=== PATIENT | female | born 1995 | race Caucasian/White ===

== ENCOUNTER 2022-10-24 12:36 | Emergency (ER) | payer BC ==
[2022-10-24 12:52] VITALS: TEMP 97.9
--- NOTE | 2022-10-24 14:21 | ED ---
General Adult HPI - General Source: patient, RN notes reviewed Mode of arrival: ambulatory Limitations: no limitations <Stefan Davis - Last Filed: 10/24/22 14:19> <Zulay Henry - Last Filed: 10/31/22 22:07> - General Chief complaint: Abdominal Pain Stated complaint: Abd pain/chest pain Time Seen by Provider: 10/24/22 14:19 - History of Present Illness Initial comments: 27-year-old female presents emergency Department chief complaint of not feeling well. Patient states she is driving started having some visual disturbance states that she felt very lightheaded. She did not pass out. States symptoms have improved somewhat states she still feels off she's been down with nausea for several months from her new control. Denies any chance denies abdominal pain states her chest felt heavy she has no prior thyroid disease. (Stefan Davis) 27-year-old female presents emergency Department reporting an episode of chest pain, shortness of breath, abdominal pain, nausea, visual disturbance and numbness in her hands which happened just prior to hospital arrival. States that she was at work when all the symptoms started. She called her mom who drove her immediately to the emergency room. Has a strong family history of cardiac disease. Patient has no known medical problems and does not take any medications. Patient is improved upon the time of my evaluation. Denies any chest pain or abdominal pain. No shortness of breath. Denies concern for . No other alleviating, presenting modifying factors (Zulay Henry) - Related Data Home Medications Medication Instructions Recorded Confirmed norgestimate-ethinyl estradioL 1 tab PO DAILY 10/24/22 10/24/22 [Evie 0.25-0.035 mg Tablet] Allergies Allergy/AdvReac Type Severity Reaction Status Date / Time No Known Allergies Allergy Verified 10/24/22 17:46 Review of Systems ROS Other: All systems not noted in ROS Statement are negative. <Stefan Davis - Last Filed: 10/24/22 14:19> ROS Other: All systems not noted in ROS Statement are negative. <Zulay Henry - Last Filed: 10/31/22 22:07> ROS Statement: Those systems with pertinent positive or pertinent negative responses have been documented in the HPI. Past Medical History Past Medical History: No Reported History History of Any Multi-Drug Resistant Organisms: None Reported Past Surgical History: No Surgical Hx Reported Past Psychological History: No Psychological Hx Reported Smoking Status: Never smoker Past Alcohol Use History: Occasional Past Drug Use History: None Reported <Stefan Davis - Last Filed: 10/24/22 14:19> General Exam Limitations: no limitations <Stefan Davis - Last Filed: 10/24/22 14:19> General appearance: alert, in no apparent distress Head exam: Present: atraumatic, normocephalic, normal inspection Eye exam: Present: normal appearance, PERRL, EOMI. Absent: scleral icterus, conjunctival injection, periorbital swelling ENT exam: Present: normal exam, mucous membranes moist Neck exam: Present: normal inspection. Absent: tenderness, meningismus, lymphadenopathy Respiratory exam: Present: normal lung sounds bilaterally. Absent: respiratory distress, wheezes, rales, rhonchi, stridor Cardiovascular Exam: Present: regular rate, normal rhythm, normal heart sounds. Absent: systolic murmur, diastolic murmur, rubs, gallop, clicks GI/Abdominal exam: Present: soft, normal bowel sounds. Absent: distended, tenderness, guarding, rebound, rigid Extremities exam: Present: normal inspection, full ROM, normal capillary refill. Absent: tenderness, pedal edema, joint swelling, calf tenderness Back exam: Present: normal inspection Neurological exam: Present: alert, oriented X3, CN II-XII intact Psychiatric exam: Present: normal affect, normal mood Skin exam: Present: warm, dry, intact, normal color. Absent: rash <Zulay Henry - Last Filed: 10/31/22 22:07> - General Exam Comments Initial Comments: Visual Physical Exam Vital signs reviewed General: Well-appearing, nontoxic, no acute distress. Head: Normocephalic, atraumatic Eyes: PERRLA, EOMI ENT: Airway patent Chest: Nonlabored breathing Skin: No visual rash, normal skin tone Neuro: Alert and oriented 3 Musculoskeletal: No gross abnormalities (Stefan Davis) Course Vital Signs 10/24/22 10/24/22 10/24/22 12:49 15:52 16:56 Temperature 97.9 F Pulse Rate 87 80 78 Respiratory 18 16 20 Rate Blood Pressure 138/97 130/60 123/68 O2 Sat by Pulse 100 98 99 Oximetry 10/24/22 10/24/22 10/24/22 17:00 18:00 19:00 Temperature Pulse Rate 68 86 78 Respiratory 16 16 16 Rate Blood Pressure 123/68 130/68 130/60 O2 Sat by Pulse 98 98 98 Oximetry 10/24/22 19:26 Temperature Pulse Rate 65 Respiratory 16 Rate Blood Pressure 130/60 O2 Sat by Pulse 98 Oximetry EKG Findings - EKG Comments: EKG Findings:: EKG demonstrates sinus rhythm with a rate of 80. NV interval 148. QRS 23. QTC 47. Inverted T-wave with Q-wave in lead 3. No acute ST segment elevations <ElaineZulay Lacie - Last Filed: 10/31/22 22:07> Medical Decision Making - Lab Data Result diagrams: 10/24/22 15:18 10/24/22 15:18 <ElaineZulay Lacie - Last Filed: 10/31/22 22:07> - Medical Decision Making Was pt. sent in by a medical professional or institution (, PA, CUSTOMER SUPPORT ADVISOR, urgent care, hospital, or long-term...) When possible be specific @ -No Did you speak to anyone other than the patient for history (EMS, parent, family, police, friend...)? What history was obtained from this source @ -patient, mom Did you review nursing and triage notes (agree or disagree)? Why? @ -I reviewed and agree with nursing and triage notes Were old charts reviewed (outside hosp., previous admission, EMS record, old EKG, old radiological studies, urgent care reports/EKG's, long-term records)? Report findings @ -No old charts were reviewed Differential Diagnosis (chest pain, altered mental status, abdominal pain women, abdominal pain men, vaginal bleeding, weakness, fever, dyspnea, syncope, headache, dizziness, GI bleed, back pain, seizure, CVA, palpatations, mental health, musculoskeletal)? @ -syncope, hyperventilation, palpitations, svt, afib, wpw, anxiety EKG interpreted by me (3pts min.). @ -yes X-rays interpreted by me (1pt min.). @ -yes CT interpreted by me (1pt min.). @ -None done U/S interpreted by me (1pt. min.). @ -None done What testing was considered but not performed or refused? (CT, X-rays, U/S, labs)? Why? @ -Ct brain - patient refused due to cost What meds were considered but not given or refused? Why? @ -None Did you discuss the management of the patient with other professionals (professionals i.e. , PA, CUSTOMER SUPPORT ADVISOR, lab, RT, psych nurse, geriatric social work professor, operation research analyst, teacher, president and chief executive officer, manager of case)? Give summary @ -No Was smoking cessation discussed for >3mins.? @ -No Was critical care preformed (if so, how long)? @ -No Were there social determinants of health that impacted care today? How? (Homelessness, low income, unemployed, alcoholism, drug addiction, transportation, low edu. Level, literacy, decrease access to med. care, skilled nursing, rehab)? @ -No Was there de-escalation of care discussed even if they declined (Discuss DNR or withdrawal of care, Hospice)? DNR status @ -No What co-morbidities impacted this encounter? (DM, HTN, Smoking, COPD, CAD, Cancer, CVA, ARF, Chemo, Hep., AIDS, mental health diagnosis, sleep apnea, morbid obesity)? @ -None Was patient admitted / discharged? Hospital course, mention meds given and route, prescriptions, significant lab abnormalities, going to OR and other pertinent info. @ -Upon arrival patient was placed into room 25. There are history and physical exam was performed. Laboratory studies are conducted and chest x-rays performed. Results of laboratory studies are reviewed with the patient. She will be discharged home at this time. To follow up with primary care doctor in regards to her symptoms. They benefit from an echo and Holter monitoring. Return for any new or worsening symptoms. Patient agreeable discharged home in stable condition Undiagnosed new problem with uncertain prognosis? @ -yes Drug Therapy requiring intensive monitoring for toxicity (Heparin, Nitro, Insulin, Cardizem)? @ -No Were any procedures done? @ -No Diagnosis/symptom? @ -near syncope, palpitations Acute, or Chronic, or Acute on Chronic? @ -acute Uncomplicated (without systemic symptoms) or Complicated (systemic symptoms)? @ -complicated Side effects of treatment? @ -No Exacerbation, Progression, or Severe Exacerbation? @ -No Poses a threat to life or bodily function? How? (Chest pain, USA, MD, pneumonia, PE, COPD, DKA, ARF, appy, cholecystitis, CVA, Diverticulitis, Homicidal, Suicidal, threat to staff... and all critical care pts) @ -yes (Zulay Henry) - Lab Data Lab Results 10/24/22 10/24/22 10/24/22 Range/Units 15:18 15:18 15:18 WBC 6.2 (3.8-10.6) k/uL RBC 4.65 (3.80-5.40) m/uL Hgb 14.0 (11.4-16.0) gm/dL Hct 38.5 (34.0-46.0) % MCV 82.7 (80.0-100.0) fL MCH 30.0 (25.0-35.0) pg MCHC 36.3 (31.0-37.0) g/dL RDW 12.7 (11.5-15.5) % Plt Count 268 (150-450) k/uL MPV 7.5 Neutrophils % 66 % Lymphocytes % 23 % Monocytes % 6 % Eosinophils % 1 % Basophils % 1 % Neutrophils # 4.1 (1.3-7.7) k/uL Lymphocytes # 1.4 (1.0-4.8) k/uL Monocytes # 0.4 (0-1.0) k/uL Eosinophils # 0.1 (0-0.7) k/uL Basophils # 0.1 (0-0.2) k/uL PT 9.8 (9.0-12.0) sec INR 0.9 (<1.2) APTT 24.1 (22.0-30.0) sec D-Dimer 0.31 (<0.60) mg/L FEU Sodium 137 (137-145) mmol/L Potassium 4.3 (3.5-5.1) mmol/L Chloride 104 (98-107) mmol/L Carbon Dioxide 23 (22-30) mmol/L Anion Gap 10 mmol/L BUN 10 (7-17) mg/dL Creatinine 0.59 (0.52-1.04) mg/dL Est GFR (CKD-EPI)AfAm >90 (>60 ml/min/1.73 sqM) Est GFR (CKD-EPI)NonAf >90 (>60 ml/min/1.73 sqM) Glucose 83 (74-99) mg/dL Calcium 9.8 (8.4-10.2) mg/dL Magnesium 2.0 (1.6-2.3) mg/dL Total Bilirubin 0.6 (0.2-1.3) mg/dL AST 37 H (14-36) U/L ALT 40 H (4-34) U/L Alkaline Phosphatase 60 (38-126) U/L Troponin I (0.000-0.034) ng/mL Total Protein 7.6 (6.3-8.2) g/dL Albumin 4.7 (3.5-5.0) g/dL Amylase Cancelled Lipase 66 (23-300) U/L TSH 0.425 L (0.465-4.680) mIU/L Free T4 1.03 (0.78-2.19) ng/dL Urine Color Urine Appearance (Clear) Urine pH (5.0-8.0) Ur Specific [place] (1.001-1.035) Urine Protein (Negative) Urine Glucose (UA) (Negative) Urine Ketones (Negative) Urine Blood (Negative) Urine Nitrite (Negative) Urine Bilirubin (Negative) Urine Urobilinogen (<2.0) mg/dL Ur Leukocyte Esterase (Negative) Urine HCG, Qual (Not Detectd) 10/24/22 10/24/22 10/24/22 Range/Units 15:18 15:18 15:18 WBC (3.8-10.6) k/uL RBC (3.80-5.40) m/uL Hgb (11.4-16.0) gm/dL Hct (34.0-46.0) % MCV (80.0-100.0) fL MCH (25.0-35.0) pg MCHC (31.0-37.0) g/dL RDW (11.5-15.5) % Plt Count (150-450) k/uL MPV Neutrophils % % Lymphocytes % % Monocytes % % Eosinophils % % Basophils % % Neutrophils # (1.3-7.7) k/uL Lymphocytes # (1.0-4.8) k/uL Monocytes # (0-1.0) k/uL Eosinophils # (0-0.7) k/uL Basophils # (0-0.2) k/uL PT (9.0-12.0) sec INR (<1.2) APTT (22.0-30.0) sec D-Dimer (<0.60) mg/L FEU Sodium (137-145) mmol/L Potassium (3.5-5.1) mmol/L Chloride (98-107) mmol/L Carbon Dioxide (22-30) mmol/L Anion Gap mmol/L BUN (7-17) mg/dL Creatinine (0.52-1.04) mg/dL Est GFR (CKD-EPI)AfAm (>60 ml/min/1.73 sqM) Est GFR (CKD-EPI)NonAf (>60 ml/min/1.73 sqM) Glucose (74-99) mg/dL Calcium (8.4-10.2) mg/dL Magnesium (1.6-2.3) mg/dL Total Bilirubin (0.2-1.3) mg/dL AST (14-36) U/L ALT (4-34) U/L Alkaline Phosphatase (38-126) U/L Troponin I <0.012 (0.000-0.034) ng/mL Total Protein (6.3-8.2) g/dL Albumin (3.5-5.0) g/dL Amylase Lipase (23-300) U/L TSH (0.465-4.680) mIU/L Free T4 (0.78-2.19) ng/dL Urine Color Colorless Urine Appearance Clear (Clear) Urine pH 5.5 (5.0-8.0) Ur Specific [place] 1.002 (1.001-1.035) Urine Protein Negative (Negative) Urine Glucose (UA) Negative (Negative) Urine Ketones 1+ H (Negative) Urine Blood Negative (Negative) Urine Nitrite Negative (Negative) Urine Bilirubin Negative (Negative) Urine Urobilinogen <2.0 (<2.0) mg/dL Ur Leukocyte Esterase Negative (Negative) Urine HCG, Qual Not Detected (Not Detectd) Disposition <Stefan Davis - Last Filed: 10/24/22 14:19> Is patient prescribed a controlled substance at d/c from ED?: No Time of Disposition: 19:14 <Zulay Henry - Last Filed: 10/31/22 22:07> Clinical Impression: Chest pain, Abdominal pain, Palpitations Disposition: HOME SELF-CARE Condition: Stable Instructions (If sedation given, give patient instructions): Heart Palpitations (DC) Additional Instructions: Please follow-up with your primary care doctor in regards to your blood pressure. Keep a blood pressure log. I will call about your thyroid results. Return for any new or worsening symptoms. I recommended you have an echo and Holter monitoring Referrals: None,Stated [Primary Care Provider] - 1-2 days
--- NOTE | 2022-10-24 14:41 | XR ---
EXAMINATION TYPE: XR chest 2V DATE OF EXAM: 10/24/2022 2:38 PM COMPARISON: None TECHNIQUE: XR chest 2V Frontal and lateral views of the chest. CLINICAL INDICATION:Female, 27 years old with history of syncope; FINDINGS: Lungs/Pleura: There is no evidence of pleural effusion, focal consolidation, or pneumothorax. Pulmonary vascularity: Unremarkable. Heart/mediastinum: Cardiomediastinal silhouette is unremarkable. Musculoskeletal: No acute osseous pathology. IMPRESSION: No acute cardiopulmonary disease/process.
[2022-10-24 15:52] LABS: Appearance,Urine Clear (Clear); Bilirubin,Urine Negative (Negative); Blood,Urine Negative (Negative); Color,Urine Colorless; Glucose,Urine (UA) Negative (Negative); Ketones,Urine 1+ (Negative); Leukocyte Esterase,Urine Negative (Negative); Nitrite,Urine Negative (Negative); PH, Urine 5.5 (5.0-8.0); Protein,Urine Negative (Negative); Specific Gravity,Urine 1.002 (1.001-1.035); Urobilinogen,Urine <2.0 mg/dL (<2.0)
[2022-10-24] MEDS ORDERED: SODIUM CHLORIDE 0.9% 1,000 ML IV ONE (16:02)
[2022-10-24 17:01] LABS: Basophils # (A) 0.1 k/uL (0-0.2); Basophils % (A) 1 %; Eosinophils # (A) 0.1 k/uL (0-0.7); Eosinophils % (A) 1 %; HCT 38.5 % (34.0-46.0); Lymphocytes # (A) 1.4 k/uL (1.0-4.8); Lymphocytes % (A) 23 %; MCHC 36.3 g/dL (31.0-37.0); MCV 82.7 fL (80.0-100.0); Mean Platelet Volume 7.5; Monocytes # (A) 0.4 k/uL (0-1.0); Monocytes % (A) 6 %; Neutrophils # (A) 4.1 k/uL (1.3-7.7); Neutrophils % (A) 66 %; Platelet Count 268 k/uL (150-450); RBC 4.65 m/uL (3.80-5.40); RDW 12.7 % (11.5-15.5); WBC 6.2 k/uL (3.8-10.6)
[2022-10-24 17:12] LABS: ALT 40 U/L (4-34); AST 37 U/L (14-36); African American GFR (CKD) >90 (>60 ml/min/1.73 sqM); Albumin 4.7 g/dL (3.5-5.0); Alkaline Phosphatase 60 U/L (38-126); Anion Gap 10 mmol/L; Blood Urea Nitrogen 10 mg/dL (7-17); Calcium 9.8 mg/dL (8.4-10.2); Carbon Dioxide 23 mmol/L (22-30); Chloride 104 mmol/L (98-107); Glucose 83 mg/dL (74-99); Lipase 66 U/L (23-300); Non-African American GFR(CKD) >90 (>60 ml/min/1.73 sqM); Potassium 4.3 mmol/L (3.5-5.1); Sodium 137 mmol/L (137-145); Total Bilirubin 0.6 mg/dL (0.2-1.3); Total Protein 7.6 g/dL (6.3-8.2)
[2022-10-24 17:15] LABS: INR 0.9 (<1.2); Partial Thromboplastin Time 24.1 sec (22.0-30.0); Prothrombin Time 9.8 sec (9.0-12.0)
[2022-10-24 19:16] LABS: T4, Free (Free Thyroxine) 1.03 ng/dL (0.78-2.19)
[2022-10-24 19:25] VITALS: RESP 16
[2022-10-24 19:26] VITALS: BP 130/60
[2022-10-24 19:27] VITALS: PULSE 65
== END 2022-10-24 19:32 | disposition home or self-care (01) ==
LOC: EC 12:36
DX: R00.2 Palpitations (principal); R07.9 Chest pain, unspecified; R10.9 Unspecified abdominal pain
CPT/HCPCS: 36415; 71046; 80053; 81003; 81025; 83690; 83735; 84439; 84443; 84484; 85025; 85379; 85610; 85730; 93005; 96360; 99284

== ENCOUNTER 2024-04-10 15:37 | Outpatient (CLI) | payer BC ==
[2024-04-10 16:41] LABS: Basophils % (A) 0 %; Eosinophils # (A) 0.1 k/uL (0-0.7); Eosinophils % (A) 1 %; HCT 33.8 % (34.0-46.0); HGB 11.9 gm/dL (11.4-16.0); Lymphocytes # (A) 1.6 k/uL (1.0-4.8); Lymphocytes % (A) 16 %; MCH 30.2 pg (25.0-35.0); MCHC 35.2 g/dL (31.0-37.0); MCV 85.9 fL (80.0-100.0); Mean Platelet Volume 8.2; Monocytes # (A) 0.8 k/uL (0-1.0); Monocytes % (A) 8 %; Neutrophils # (A) 6.9 k/uL (1.3-7.7); Neutrophils % (A) 72 %; Platelet Count 254 k/uL (150-450); RBC 3.93 m/uL (3.80-5.40); RDW 14.9 % (11.5-15.5); WBC 9.6 k/uL (3.8-10.6)
[2024-04-10 16:51] LABS: ALT 14 U/L (4-34); AST 21 U/L (14-36); African American GFR (CKD) >90 (>60 ml/min/1.73 sqM); Blood Urea Nitrogen 9 mg/dL (7-17); LDH 205 U/L (120-246); Non-African American GFR(CKD) >90 (>60 ml/min/1.73 sqM); Uric Acid 2.2 mg/dL (3.7-7.4)
[2024-04-10 16:57] LABS: Appearance,Urine Clear (Clear); Bacteria,Urine Many /hpf; Bilirubin,Urine Negative (Negative); Blood,Urine Negative (Negative); Color,Urine Colorless; Glucose,Urine (UA) Trace (Negative); Ketones,Urine Negative (Negative); Leukocyte Esterase,Urine Small (Negative); Mucus,Urine Rare /hpf; Nitrite,Urine Negative (Negative); PH, Urine 6.5 (5.0-8.0); Protein,Urine Negative (Negative); RBC,Urine 1 /hpf (0-5); Specific Gravity,Urine 1.007 (1.001-1.035); Squamous Epithelial Cell,Urine 1 /hpf (0-4); Urobilinogen,Urine <2.0 mg/dL (<2.0); WBC,Urine 2 /hpf (0-5)
[2024-04-10 17:06] LABS: Creatinine,Urine Random 34.9 mg/dL; Protein/Creatinine Ratio,Urine 0.487
[2024-04-10 17:52] VITALS: BP 147/103; PULSE 88; RESP 16; TEMP 98.8
== END 2024-04-10 17:35 | disposition home or self-care (01) ==
LOC: FBPOP 15:37
PROVIDERS: ATTEND Obstetrics & Gynecology
CPT/HCPCS: 59025; 81001; 82565; 82570; 83615; 84156; 84450; 84460; 84520; 84550; 85025; 99215

== ENCOUNTER 2024-04-12 12:41 | Outpatient (CLI) | payer BC ==
[2024-04-12 13:11] VITALS: BP 127/79; PULSE 100; RESP 18; TEMP 98.2
--- NOTE | 2024-05-29 10:21 | P.MSEPDOC ---
Presenting Problems - Arrival Data Date of Arrival on Unit: 04/12/24 Time of Arrival on Unit: 12:45 Mode of Transport: Ambulatory - Complaint OB-Reason for Admission/Chief Complaint: NST Comment: NST and BP check, started Labatelol 100mg po bid on Medical History - Information : 1 Para: 0 Term: 0 : 0 Abortions: Spontaneous or Elective: 0 Number of Living Children: 0 - Gestational Age Gestational Age by LINCOLN (wks/days): 38 Weeks and 1 Days Review of Systems - Review of Systems Constitutional: No problems Breast: No problems ENT: No problems Cardiovascular: No problems Respiratory: No problems Gastrointestinal: No problems Genitourinary: No problems Musculoskeletal: No problems Neurological: No problems Skin: No problems Vital Signs - Temperature Temperature: 98.2 F Temperature Source: Oral - Pulse Right Sitting Brachial Pulse Rate: 100 Pulse Assessment Method: Automatic Cuff - Respirations Respiratory Rate: 18 Oxygen Delivery Method: Room Air O2 Sat by Pulse Oximetry: 95 - Blood Pressure Right Arm Sitting Blood Pressure: 127/79 Blood Pressure Mean: 95 Blood Pressure Source: Automatic Cuff Medical Screen Scoring - Assessment - Baby A Baseline FHR: 135 Heart Rate - NICHD Category: Category I (Normal) NST: Reactive Physician Notification - Physician Notified Physician Notified Date: 04/12/24 Physician Notified Time: 13:05 Physician: Caro Parker New Order Received: Yes - Notification Comment Comment: dc home. Maternal Triage Index - Maternal Triage Index Presenting for scheduled procedure w/no complaint: No - Stat/Priority 1 Stat Priority 1: No - Urgent/Priority 2 Urgent Priority 2: No - Prompt/Priority 3 Prompt Priority 3: No - Non-Urgent/Priority 4 Non-Urgent Priority 4: No - Scheduled/Requesting Priority 5 Scheduled/Requesting Priority 5: Yes Criteria Met for Priority 5: NST and BP check, started Labatelol for increased BP this past . BP 127/79 and NST reactive. Dc home, follow up with dr Barragan in the office on as scheduled. Disposition - Disposition OB Disposition: Discharge to home, Written follow up instructions reviewed Discharge Date: 04/12/24 Discharge Time: 13:11 I agree with the RN Medical Screening Exam: Yes Case reviewed; plan agreed upon as documented in EMR&OBIX.: Yes Diagnosis: RELATED CONDITIONS, UNSPECIFIED, THIRD TRIMESTER
== END 2024-04-12 13:12 | disposition home or self-care (01) ==
LOC: FBPOP 12:41
PROVIDERS: ATTEND Obstetrics & Gynecology Obstetrics
CPT/HCPCS: 59025; 99213

== ENCOUNTER 2024-04-22 06:00 | Inpatient (IN) | payer BC ==
[2024-04-22] MEDS ORDERED: METHYLERGONOVINE 0.2 MG/ML 1 ML AMP IM PRN (06:29)
[2024-04-22] MEDS ORDERED: TERBUTALINE 1 MG/ML VIAL SQ PRN (06:29)
[2024-04-22] MEDS ORDERED: CARBOPROST TROMETHAMINE 250 MCG/ML 1 ML AMP IM PRN (06:29)
[2024-04-22] MEDS ORDERED: miSOPROStoL 200 MCG TAB PO PRN (06:29)
[2024-04-22] MEDS ORDERED: OXYTOCIN 10 UNIT/ML 1 ML VIAL IM PRN (06:29)
[2024-04-22] MEDS ORDERED: miSOPROStoL 200 MCG TAB RECTAL PRN (06:29)
[2024-04-22] MEDS ORDERED: TRANEXAMIC 1,000 MG/100ML-NACL 1,000 MG in EMPTY BAG 1 BAG IV PRN (06:29)
[2024-04-22] MEDS: LACTATED RINGERS 1,000 ML IV SCH (06:58)
[2024-04-22] MEDS: OXYTOCIN 30 UNITS/500 ML NS 30 UNIT in SALINE 1 500ML.BAG IV SCH (06:58)
[2024-04-22 07:00] LABS: Basophils % (A) 0 %; Eosinophils # (A) 0.2 k/uL (0-0.7); Eosinophils % (A) 2 %; HGB 11.7 gm/dL (11.4-16.0); Lymphocytes # (A) 1.7 k/uL (1.0-4.8); Lymphocytes % (A) 19 %; MCH 29.6 pg (25.0-35.0); MCHC 34.4 g/dL (31.0-37.0); Mean Platelet Volume 7.8; Monocytes # (A) 0.7 k/uL (0-1.0); Monocytes % (A) 8 %; Neutrophils # (A) 6.2 k/uL (1.3-7.7); Neutrophils % (A) 69 %; Platelet Count 255 k/uL (150-450); RBC 3.95 m/uL (3.80-5.40); RDW 14.7 % (11.5-15.5); WBC 8.9 k/uL (3.8-10.6)
--- NOTE | 2024-04-22 08:31 | P.HPOB ---
History of Present Illness H&P Date: 04/22/24 Chief Complaint: -induced hypertension at 39+ weeks This is a 28 year old 1 para 0 woman with an estimated due date of 04/25/2024 based on LMP consistent with first trimester ultrasound. She has had an uncomplicated however did develop elevated blood pressures at approximately 34 weeks' gestation. Laboratory data was reassuring however she did have a slightly elevated protein creatinine urine ratio of 0.4. She's had significant bilateral lower extremity edema starting at approximately 32 weeks. Her cervix is favorable she was therefore admitted for induction of labor. She was maintained on labetalol 100 mg twice a day prior to induction of labor. 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 Family history noncontributory next social history she is , negative tobacco: Drug use. Review of Systems All systems: negative Past Medical History Past Medical History: No Reported History History of Any Multi-Drug Resistant Organisms: None Reported Past Surgical History: No Surgical Hx Reported Past Anesthesia/Blood Transfusion Reactions: No Reported Reaction Past Psychological History: No Psychological Hx Reported Smoking Status: Never smoker Past Alcohol Use History: Occasional Past Drug Use History: None Reported - Past Family History Father Family Medical History: No Reported History Mother History Unknown: Yes Medications and Allergies Home Medications Medication Instructions Recorded Confirmed Type Labetalol [Trandate] 100 mg PO BID 04/12/24 04/22/24 History Allergies Allergy/AdvReac Type Severity Reaction Status Date / Time No Known Allergies Allergy Verified 04/22/24 06:28 Exam Vital Signs Temp Pulse Resp BP Pulse Ox 04/22/24 06:30 97.6 F 95 16 116/72 96 Intake and Output 04/21/24 04/22/24 04/22/24 22:59 06:59 14:59 Other: Weight 94.801 kg Targeted physical exam is performed: This is a pleasant, visibly gravid female in no acute distress. HEENT exam is unremarkable. She does have some melasma of . Her breathing is unlabored and her heart is a regular rate and rhythm. Her abdomen is gravid, soft and nontender and is consistent with gestational age. She has 2+ bilateral lower extremity edema and 1+ bilateral deep tendon reflexes with no clonus. On pelvic examination cervix is 4 cm dilated, 70% effaced and the vertex in the -3 station. Artificial rupture of membranes is undertaken and copious clear fluid is noted. heart tones are category 1 and she is irregularly leonard. Results Result Diagrams: 04/22/24 06:39 Assessment and Plan (1) 39 weeks gestation of Current Visit: Yes Status: Acute Code(s): Z3A.39 - 39 WEEKS GESTATION OF SNOMED Code(s): 34804613 (2) induced hypertension Current Visit: Yes Status: Acute Code(s): O13.9 - GESTATIONAL HTN W/O SIGNIFICANT PROTEINURIA, UNSP TRIMESTER SNOMED Code(s): 13157671 Plan: 28-year-old 1 para 0 woman at 39-4/7 weeks gestation admitted for induction of labor with favorable cervix secondary to -induced hy pertension. status is currently reassuring her admission blood pressures are normal. Artificial rupture of membranes is been undertaken and Pitocin induction of labor per protocol is initiated. She may have an epidural anesthetic upon request in active labor and I anticipate normal spontaneous vaginal delivery.
--- NOTE | 2024-04-22 12:27 | P.PROBDLV ---
Vaginal Delivery Note - . Vaginal Delivery Note: Findings: Female in the vertex presentation, compound presentation with left hand. Apgars of 9 at 1 minute and 9 at 5 minutes weighing 7 lbs. 5 oz. Third degree irregular perineal laceration and bilateral periurethral lacerations. EBL 200 mL's. Intact, three-vessel cord placenta. Delivery summary: This is a 28-year-old 1 para 0 woman who is admitted at 39-4/7 weeks gestation for induction of labor secondary to -induced hypertension and favorable cervix. Following admission on she underwent artificial rupture of membranes and Pitocin induction of labor per protocol. She was proxy 4 cm dilated at 8:30 AM. She progressed to 6 cm dilated by approximately 10 AM. She then on reach complete cervical dilation by 10:41 AM on the and commenced pushing. She had a category 1 heart tones throughout. The she eventually pushed to at which time she was repositioned, prepped and draped in the modified [place] position. With additional maternal effort the she did deliver the head from the left occiput anterior position. There is noted to be and the delivered next to the head. The anterior and posterior shoulders were then delivered without difficulty and the last rest of the infant was delivered onto the field. There was a umbilical cord wrapped around the left shoulder and body but not a nuchal cord. The 's nose and mouth were bulb suctioned and the infant was placed on the maternal abdomen. The perineum was inspected and a irregular shaped third- degree perineal laceration was noted. This was infused with lidocaine. Eventually the cord was clamped and cut and the cord blood sample for maternal Rh- status was collected. Intact, three-vessel cord placenta was then expressed. 3-0 Vicryl suture was utilized to reapproximate the capsule around the perirectal muscles. The perineal laceration was then repaired with 3-0 Vicryl suture. Rectal examination was performed and noted to be intact. The bilateral periurethral lacerations were not actively bleeding therefore were allowed to heal with secondary intention. The rest of the vagina was further inspected and no further extension of lacerations were noted. Details approximately 200 mL's. Both mother and infant were doing well post delivery in the room. All counts were correct. Pitocin following delivery of the placenta.
[2024-04-22] MEDS ORDERED: diphenhydrAMINE 50 MG CAP PO PRN (12:28)
[2024-04-22] MEDS ORDERED: SIMETHICONE 80 MG CHEWABLE PO PRN (12:28)
[2024-04-22] MEDS ORDERED: LANOLIN CREAM 1 GM TUBE TOPICAL PRN (12:28)
[2024-04-22] MEDS ORDERED: diphenhydrAMINE 50 MG/ML 1 ML VIAL IVP PRN ×2 (12:28)
[2024-04-22] MEDS ORDERED: ACETAMINOPHEN TAB 325 MG TAB PO PRN (12:28)
[2024-04-22] MEDS ORDERED: HYDROCORTISONE 2.5% RECTAL CREAM 30 GM TUBE RECTAL PRN (12:28)
[2024-04-22] MEDS ORDERED: diphenhydrAMINE 25 MG CAP PO PRN (12:28)
[2024-04-22] MEDS ORDERED: ZOLPIDEM 5 MG TAB PO PRN (12:28)
[2024-04-22 13:31] VITALS: RESP 16
[2024-04-22] MEDS: IBUPROFEN 600 MG TAB PO SCH (13:40)
[2024-04-22] MEDS: LIDOCAINE 0.5% (PF) 5 MG/ML (50 ML SDV) SQ PRN (15:02)
[2024-04-22] MEDS: BENZOCAINE/MENTHOL SPRAY 1 GM/SPRAY AEROSOL TOPICAL PRN (15:03)
[2024-04-22] MEDS: SENNOSIDES-DOCUSATE SODIUM 1 EACH TAB PO SCH (20:38)
[2024-04-23] MEDS: Rhogam IMMUNE GLOBULIN 1,500 UNIT/1 ML IM ONE (00:32)
[2024-04-23 07:25] LABS: Basophils % (A) 0 %; Eosinophils # (A) 0.2 k/uL (0-0.7); Eosinophils % (A) 2 %; HCT 26.2 % (34.0-46.0); Lymphocytes # (A) 1.7 k/uL (1.0-4.8); Lymphocytes % (A) 14 %; MCH 30.1 pg (25.0-35.0); MCHC 34.6 g/dL (31.0-37.0); Monocytes # (A) 0.8 k/uL (0-1.0); Monocytes % (A) 7 %; Neutrophils # (A) 9.3 k/uL (1.3-7.7); Neutrophils % (A) 75 %; Platelet Count 233 k/uL (150-450); RBC 3.02 m/uL (3.80-5.40); WBC 12.4 k/uL (3.8-10.6)
[2024-04-23 07:29] LABS: HGB 9.1 gm/dL (11.4-16.0)
--- NOTE | 2024-04-23 08:10 | P.DS ---
Providers Date of admission: 04/22/24 06:07 Expected date of discharge: 04/23/24 Attending physician: Sherron Brown Primary care physician: Stated None - Discharge Diagnosis(es) (1) 39 weeks gestation of Current Visit: Yes Status: Acute (2) induced hypertension Current Visit: Yes Status: Acute (3) Normal spontaneous vaginal delivery Current Visit: Yes Status: Acute (4) Perineal laceration with delivery, third degree Current Visit: Yes Status: Acute Hospital Course: This is a 28-year-old 1 now para 1 woman who is admitted at 39-4/7 weeks' gestation for induction of labor secondary to -induced hypertension. Following admission she underwent an artificial rupture of membranes and Pitocin induction of labor. Her blood pressures were normal upon admission. She had a rapid progression to complete cervical dilation and went on to deliver a liveborn female infant with a compound hand presentation. She had a third-degree perineal laceration that was repaired. Apgars were 9 at 1 minute and 9 at 5 minutes and weight was 7 lbs. 5 oz. The patient's course was unremarkable. By day #1 she was ambulating and voiding without difficulty. Her blood pressures were normal. Her pain was well controlled and her lochia was moderate. She was breast-feeding and planned consultation prior to discharge. She was discharged home on day #1 with routine instructions for care and follow-up. Patient Condition at Discharge: Good Plan - Discharge Summary New Discharge Prescriptions: New Acetaminophen Tab [Tylenol] 650 mg PO Q4HR PRN tab PRN Reason: Mild Pain Or Fever >= 100.5 Ibuprofen [Motrin] 600 mg PO Q6HR tab Sennosides-Docusate Sodium [Senokot-S] 2 each PO BID@799,1999 tab Discontinued Labetalol [Trandate] 100 mg PO BID Discharge Medication List Acetaminophen Tab [Tylenol] 650 mg PO Q4HR PRN tab 04/23/24 [Rx] Ibuprofen [Motrin] 600 mg PO Q6HR tab 04/23/24 [Rx] Sennosides-Docusate Sodium [Senokot-S] 2 each PO BID@799,1999 tab 04/23/24 [Rx] Follow up Appointment(s)/Referral(s): Sherron Brown MD [STAFF PHYSICIAN] - 06/03/24 9:00 am Activity/Diet/Wound Care/Special Instructions: Follow-up in the office in 6 weeks . Call with any concerning signs or symptoms including heavy vaginal bleeding, severe abdominal pain, fever greater than 101, swelling or redness of the lower extremities, foul vaginal discharge, or signs of depression. Nothing in the vagina for 6 weeks after delivery, specifically no intercourse.
[2024-04-23 08:13] VITALS: BP 130/97; PULSE 96; TEMP 98.1
== END 2024-04-23 13:20 | disposition home or self-care (01) | DRG 768 ==
LOC: 4FBP 06:07
PROVIDERS: ADMIT Obstetrics & Gynecology; ATTEND Obstetrics & Gynecology
PROC: 10E0XZZ Delivery of Products of Conception, External Approach (ICD-10-PCS; principal; 2024-04-22)
PROC: 0DQR0ZZ Repair Anal Sphincter, Open Approach (ICD-10-PCS; 2024-04-22)
PROC: 10907ZC Drainage of Amniotic Fluid, Therapeutic from Products of Conception, Via Natural or Artificial Opening (ICD-10-PCS; 2024-04-22)
PROC: 3E033VJ Introduction of Other Hormone into Peripheral Vein, Percutaneous Approach (ICD-10-PCS; 2024-04-22)
DX: O13.4 Gestational [pregnancy-induced] hypertension without significant proteinuria, complicating childbirth (principal); Z37.0 Single live birth; O70.20 Third degree perineal laceration during delivery, unspecified; O12.14 Gestational proteinuria, complicating childbirth; O32.6XX0 Maternal care for compound presentation, not applicable or unspecified; O71.82 Other specified trauma to perineum and vulva; Z3A.39 39 weeks gestation of pregnancy